=== PATIENT | female | born 1970 | race Caucasian/White ===

== ENCOUNTER → 2016-08-27 | Outpatient (CLI) | payer BC ==
--- NOTE | 2016-08-27 13:54 | MY ---
EXAMINATION: Bilateral digital mammography utilizing CAD. HISTORY: Screening exam. Comparison is made to previous studies dated 08/15/2015, 06/21/2014. FINDINGS: Bilateral scattered fibroglandular densities. No suspicious calcifications, masses or a rchitectural distortions. No pathologic appearing lymph nodes, no abnormal skin thickening or nipp le inversion. CAD highlighted regions appear normal at this time. IMPRESSION: BI-RADS category I - negative mammogram. Continued screening according to ACR-ACS gu idelines suggested. THE FALSE-NEGATIVE RATE OF MAMMOGRAM IS APPROXIMATELY 10%. MANAGEMENT OF A PALPABLE ABNORMALITY MUST BE BASED UPON CLINICAL GROUNDS. SENSITIVITY FOR DETECTION OF ABNORMALITIES IN DENSE BREASTS IS LOW. NOTE: A letter will be sent to the patient regarding findings. [facility] [phone] - FAX [phone]
== END | disposition home or self-care (01) ==
LOC: MW.MAM 09:19
PROVIDERS: ATTEND Obstetrics & Gynecology
DX: Z12.31 Encounter for screening mammogram for malignant neoplasm of breast (principal)
CPT/HCPCS: G0202; G0202-26

== ENCOUNTER 2020-05-05 06:44 | Day surgery (SDC) | payer BC ==
[~2020-05-05 06:44] MED LIST: Lactated Ringers 1,000 ML IV SCH; Sodium Chloride 0.9% 10 ML SDV IV PRN; Sodium Chloride 0.9% 10 ML Syringe FLUSH PRN; Sodium Chloride 0.9% 2.5 ML Syringe FLUSH PRN
[2020-05-05] MEDS ORDERED: Midazolam 1 MG/ML 2 ML SDV ONE (07:10)
[2020-05-05] MEDS ORDERED: Propofol 200 MG/20 ML SDV ONE (07:10)
[2020-05-05] MEDS ORDERED: fentaNYL 100 MCG/2 ML SDV ONE (07:10)
[2020-05-05] MEDS ORDERED: Lidocaine 2% 5 ML SDV ONE (07:10)
--- NOTE | 2020-05-05 07:30 | PCM.PREANE ---
Preanesthetic Assessment - Anesthesia/Transfusion/Family Hx Anesthesia History: Prior Anesthesia Without Reaction Type of Anesthesia Reaction: Excessive Nausea/Vomiting Family History of Anesthesia Reaction: No Transfusion History: No Prior Transfusion(s) - Review of Systems General: No Symptoms Pulmonary: No Symptoms Cardiovascular: No Symptoms Gastrointestinal: No Symptoms Neurological: No Symptoms Other: Reports: None - Physical Assessment NPO Status Date: 05/04/20 Vital Signs: Last Vital Signs Temp 96.8 F L 05/05/20 06:45 Pulse 82 05/05/20 06:45 Resp 15 05/05/20 06:45 BP 153/87 H 05/05/20 06:45 Pulse Ox 97 05/05/20 06:45 Height: 5 ft 2 in Weight: 73.028 kg Mental Status: Alert & Oriented x3 Dentition: Reports: Normal Dentition ROM/Head Extension: Full Lungs: Clear to Auscultation, Normal Respiratory Effort Cardiovascular: Regular Rate, Regular Rhythm - Allergies Allergies/Adverse Reactions: Allergies Allergy/AdvReac Type Severity Reaction Status Date / Time ciprofloxacin [From Cipro] Allergy Rash Verified 04/29/20 11:47 Sulfa (Sulfonamide Allergy Rash Verified 04/29/20 11:47 Antibiotics) - Blood Blood Available: No - Anesthesia Plan Pre-Op Medication Ordered: None - Acknowledgements Anesthesia Type Planned: General Anesthesia Pt an Appropriate Candidate for the Planned Anesthesia: Yes Alternatives and Risks of Anesthesia Discussed w Pt/Guardian: Yes Pt/Guardian Understands and Agrees with Anesthesia Plan: Yes PreAnesthesia Questionnaire HEENT History: Reports: Allergic Rhinitis, Other (See Below) Other HEENT History: wears glasses Cardiovascular History: Reports: Hypertension Respiratory History: Reports: Asthma Other Respiratory History: allergy induced asthma Gastrointestinal History: Reports: Other (See Below) Other Gastrointestinal History: hx ulcerative colitis ("possible") Genitourinary History: Reports: None [employer] DEVELOPER History: Reports: Musculoskeletal History: Reports: Arthritis Neurological History: Reports: None Psychiatric History: Reports: Anxiety, Depression Endocrine/Metabolic History: Reports: Diabetes, Type II Hematologic History: Reports: None Immunologic History: Reports: None Oncologic (Cancer) History: Reports: None Dermatologic History: Reports: None - Past Surgical History Head Surgeries/Procedures: Reports: None HEENT Surgical History: Reports: None Cardiovascular Surgical History: Reports: None Respiratory Surgical History: Reports: None GI Surgical History: Reports: Colonoscopy Female Surgical History: Reports: Breast Biopsy, Cystectomy, D&C, Other (See Below) Other Female Surgeries/Procedures: hx breast lumpectomy, laparoscopic ovarian cystectomy Endocrine Surgical History: Reports: None Neurological Surgical History: Reports: None Musculoskeletal Surgical History: Reports: Carpal Tunnel Oncologic Surgical History: Reports: Biopsy of Breast Dermatological Surgical History: Reports: None - SUBSTANCE USE Tobacco Use Status *Q: Former Tobacco User Tobacco Use Within Last Twelve Months: No - HOME MEDS Home Medications: Home Meds Albuterol Sulfate 1 dose NEB ASDIRECTED PRN 04/29/20 [History] Albuterol Sulfate [Albuterol Sulfate Hfa] 1 - 2 puff INH ASDIRECTED PRN 04/29/20 [History] Cholecalciferol (Vitamin D3) [Vitamin D3] 5,000 units PO DAILY 04/29/20 [History] Fexofenadine/Pseudoephedrine [Fexofenadine-Pse ER 60-120 Tab] 1 tab PO ASDIRECTED PRN 04/29/20 [History] Fluticasone Propion/Salmeterol [Fluticasone-Salmeterol 250-50] 1 puff INH BID PRN 04/29/20 [History] Fluticasone Propionate [Flonase Allergy Relief] 2 spray NASBOTH DAILY PRN 04/29/20 [History] Potassium Chloride 20 meq PO DAILY 04/29/20 [History] Triamterene/Hydrochlorothiazid [Triamterene-HCTZ 37.5-25 MG] 1 tab PO DAILY 04/29/20 [History] buPROPion HCL [Bupropion Xl] 150 mg PO DAILY 04/29/20 [History] levonorgestreL [Mirena] 1 device VAG ONETIME 04/29/20 [History] metFORMIN HCl [Metformin HCl ER] 3 tab PO BEDTIME 04/29/20 [History] - CURRENT (IN HOUSE) MEDS Current Meds: Current Medications Lactated Ringer's (Ringers, Lactated) 1,000 mls @ 125 mls/hr IV ASDIRECTED ALEX Last Admin: 05/05/20 07:10 Dose: 125 mls/hr Documented by: Sodium Chloride (Saline Flush) 10 ml FLUSH ASDIRECTED PRN PRN Reason: Keep Vein Open Sodium Chloride (Saline Flush) 2.5 ml FLUSH ASDIRECTED PRN PRN Reason: Keep Vein Open Sodium Chloride (Saline Flush) 10 ml FLUSH ASDIRECTED PRN PRN Reason: Keep Vein Open Sodium Chloride (Saline Flush) 2.5 ml FLUSH ASDIRECTED PRN PRN Reason: Keep Vein Open Sodium Chloride (Normal Saline) 10 ml IV ASDIRECTED PRN PRN Reason: IV Use Discontinued Medications Fentanyl (Sublimaze) Confirm Administered Dose 100 mcg .ROUTE .STK-MED ONE Stop: 05/05/20 07:11 Lidocaine (Xylocaine-Mpf 2%) Confirm Administered Dose 5 ml .ROUTE .STK-MED ONE Stop: 05/05/20 07:11 Midazolam HCl (Versed 1 Mg/Ml) Confirm Administered Dose 2 mg .ROUTE .STK-MED ONE Stop: 05/05/20 07:11 Propofol (Diprivan 20 Ml) Confirm Administered Dose 400 mg .ROUTE .STK-MED ONE Stop: 05/05/20 07:11
--- NOTE | 2020-05-05 08:47 | PCM.OPNOTE ---
- General Post-Op/Procedure Note Date of Surgery/Procedure: 05/05/20 Operative Procedure(s): Screening colonoscopy Findings: Transverse colon polyp, sigmoid colon polyp, rectal polyp Pre Op Diagnosis: Screening colonoscopy Post-Op Diagnosis: Transverse, sigmoid, rectal colon polyps Anesthesia Technique: [facility] [place] Primary Surgeon: Heidi Rasmussen Condition: Good
--- NOTE | 2020-05-05 10:22 | PCM.POSTAN ---
POST ANESTHESIA ASSESSMENT - MENTAL STATUS Mental Status: Alert, Oriented - VITAL SIGNS Vital Signs: Last Vital Signs Temp 97.3 F 05/05/20 08:56 Pulse 80 05/05/20 08:56 Resp 16 05/05/20 08:56 BP 129/65 05/05/20 08:56 Pulse Ox 98 05/05/20 08:56 - RESPIRATORY Respiratory Status: Respiratory Rate WNL, Airway Patent, O2 Saturation Stable - CARDIOVASCULAR CV Status: Pulse Rate WNL, Blood Pressure Stable - GASTROINTESTINAL GI Status: No Symptoms - POST OP HYDRATION Hydration Status: Adequate & Stable
--- NOTE | 2020-05-05 10:22 | PCM48HPAN ---
Post Anesthesia Note - EVALUATION WITHIN 48HRS OF ANESTHETIC Vital Signs in Normal Range: Yes Patient Participated in Evaluation: Yes Respiratory Function Stable: Yes Airway Patent: Yes Cardiovascular Function Stable: Yes Hydration Status Stable: Yes Pain Control Satisfactory: Yes Nausea and Vomiting Control Satisfactory: Yes Mental Status Recovered: Yes Vital Signs: Last Vital Signs Temp 97.3 F 05/05/20 08:56 Pulse 80 05/05/20 08:56 Resp 16 05/05/20 08:56 BP 129/65 05/05/20 08:56 Pulse Ox 98 05/05/20 08:56
--- NOTE | 2020-05-06 10:57 | OR ---
SURGEON: HEIDI RASMUSSEN MD DATE OF PROCEDURE: 05/05/2020 PREOPERATIVE DIAGNOSIS: Screening colonoscopy. POSTOPERATIVE DIAGNOSES: 1. Transverse colon polyp. 2. Sigmoid colon polyp. 3. Rectal polyp. PROCEDURE PERFORMED: Screening colonoscopy with polypectomy. PRIMARY SURGEON: Heidi Rasmussen MD. ANESTHESIA: MAC. INSTRUMENT USED: Olympus colonoscope. EXTENT OF EXAM: To the cecum. PREPARATION: Good. LIMITATIONS: None. INDICATIONS FOR EXAMINATION: The patient is a 50-year-old female who presents for screening colonoscopy. I discussed the procedure, expected perioperative course, and the risks including bleeding, infection, or damage to surrounding structures. The patient verbalized understanding and wished to proceed. PROCEDURE IN DETAIL: The patient was brought to the endoscopy suite and placed in the left lateral decubitus position. A time-out was completed verifying the patient's name, age, date of , allergies, and procedure to be performed. Monitored anesthesia care was induced and continuous oxygen was provided via nasal cannula throughout the procedure. After adequate sedation was achieved, a digital rectal exam was performed. This exam was within normal limits. A well-lubricated colonoscope was inserted in the rectum and advanced under direct visualization to the level of the cecum. The cecum was identified by both visual and anatomic landmarks. A photograph was taken of the cecal cap, however, I was unable to retroflex the scope within the cecum due to looping of the scope more proximally. The scope was then straightened out and fully withdrawn while examining the color, texture, anatomy, and integrity of the mucosa from the cecum to the anal canal. The patient was found to have 3 sessile polyps, one within the transverse colon, one within the sigmoid colon, and one in the rectum. These were all removed in piecemeal fashion using a cold biopsy forceps. The scope was then retroflexed within the rectum to allow visualization of the anal canal opening. This appeared normal and a photograph was taken. The scope was then straightened out and fully withdrawn. The cecum to anus time was 19 minutes. The patient tolerated the procedure well, was transferred to the PACU in stable condition. ENDOSCOPIC DIAGNOSES: 1. Transverse colon polyp. 2. Sigmoid colon polyp. 3. Rectal polyp. RECOMMENDATIONS: Follow up in clinic in 2 weeks. MISTI / FRANDY /[id number]
== END 2020-05-05 09:20 | disposition home or self-care (01) ==
LOC: MW.SDS 06:44
PROVIDERS: ATTEND Surgery
DX: Z12.11 Encounter for screening for malignant neoplasm of colon (principal); D12.3 Benign neoplasm of transverse colon; K62.1 Rectal polyp; J45.40 Moderate persistent asthma, uncomplicated; I10 Essential (primary) hypertension; G47.00 Insomnia, unspecified; F41.9 Anxiety disorder, unspecified; F32.9 Major depressive disorder, single episode, unspecified; E11.9 Type 2 diabetes mellitus without complications; Z88.8 Allergy status to other drugs, medicaments and biological substances; Z88.2 Allergy status to sulfonamides; Z79.899 Other long term (current) drug therapy; Z98.890 Other specified postprocedural states; Z79.84 Long term (current) use of oral hypoglycemic drugs
CPT/HCPCS: 45380; 81025; J2001; J2250; J2704; J3010; J7120